=== PATIENT | female | born 1950 | race Caucasian/White ===

== ENCOUNTER 2025-04-12 10:52 | Emergency (ER) | payer MEDICARE ==
[2025-04-12 11:09] VITALS: RESP 18; TEMP 97.2
[2025-04-12 11:32] VITALS: PULSE 83; O2SAT 96
--- NOTE | 2025-04-12 12:06 | ERPHSYRPT ---
- History of Present Illness Time Seen by Provider: 04/12/25 12:02 Source: patient Exam Limitations: no limitations Patient Subjective Stated Complaint: PT HERE BECAUSE SHE FEELS LIKE SHE CAN NOT MOVE TOES TO RIGHT FOOT WELL. AND HAS NUMBNESS TO RIGHT FOOT, SHE DENIES ANY INJURY Triage Nursing Assessment: PT ARRIVED PER EMS, ALERT BUT FORGETFUL. RESP EASY, SKIN W/D/P, ABLE TO MOVES RIGHT LEG AND HOLD OFF OF BED, ABLE TO WGGILE TOES, STRONG PEDAL PULSE, NO EDEMA NOTED Physician History: Patient is a 74-year-old female presents to our ED via EMS for evaluation of numbness to her right leg and inability to dorsiflex her right foot and toes. Symptoms were observed this morning after placing a right knee brace on which she uses for stability of her right knee. No trauma no fever. Patient describes a numbness sensation along the lateral leg into the dorsum of the foot. The involved extremities neurovascular intact distally compartments are soft cap refill less than 2 seconds. Portions of this note were created with voice recognition technology. There may be grammatical, spelling, punctuation or sound alike errors Timing/Duration: today Severity: moderate Modifying Factors: Improves With: nothing Associated Symptoms: denies symptoms Allergies/Adverse Reactions: No Known Drug Allergies Allergy (Verified 04/12/25 10:56) Hx Tetanus, Diphtheria Vaccination/Date Given: Yes Hx Influenza Vaccination/Date Given: Yes Hx Pneumococcal Vaccination/Date Given: Yes Immunizations Up to Date: Yes Travel Risk - International Travel Have you traveled outside of the country in past 3 weeks: No - Emerging Infectious Disease Are you exhibiting symptoms associated with any current EIDs: No - Review of Systems Constitutional: No Symptoms, No Fever, No Chills Eyes: No Symptoms Ears, Nose, & Throat: No Symptoms Respiratory: No Symptoms, No Cough, No Dyspnea Cardiac: No Symptoms, No Chest Pain, No Edema, No Syncope Abdominal/Gastrointestinal: No Symptoms, No Abdominal Pain, No Nausea, No Vomiting, No Diarrhea Genitourinary Symptoms: No Symptoms, No Dysuria Musculoskeletal: No Symptoms, No Back Pain, No Neck Pain Skin: No Symptoms, No Rash Neurological: No Symptoms, No Dizziness, No Focal Weakness, No Sensory Changes Psychological: No Symptoms Endocrine: No Symptoms Hematologic/Lymphatic: No Symptoms Immunological/Allergic: No Symptoms All Other Systems: Reviewed and Negative - Past Medical History Pertinent Past Medical History: Yes Neurological History: No Pertinent History ENT History: Cataracts Cardiac History: Hypertension Respiratory History: No Pertinent History, COPD Endocrine Medical History: Diabetes Type II Musculoskeletal History: Arthritis GI Medical History: GERD History: No Pertinent History Psycho-Social History: Depression, Anxiety Female Reproductive Disorders: No Pertinent History Other Medical History: DIABETES,ANIXETY,DEPRESSION,ACID REFLUX - Past Surgical History Past Surgical History: Yes Neuro Surgical History: No Pertinent History Cardiac: No Pertinent History Respiratory: No Pertinent History Gastrointestinal: No Pertinent History Genitourinary: No Pertinent History Musculoskeletal: Joint Replacement Female Surgical History: Section Other Surgical History: rt knee replacement - Social History Smoking Status: Former smoker Exposure to second hand smoke: Yes Drug Use: none - Social Determinants of Health Will the patient participate in the screening: Yes Do you worry about a steady place to live?: No Do you have any problems with any of the following?: No known problems In the past 12 months,have you had to go without utilities?: No Transportation Issues: Yes Has anyone in your support network made you feel unsafe?: No Have you or anyone in your house had to go w/o enough food: No - Nursing Vital Signs Nursing Vital Signs: Initial Vital Signs O2 Sat by Pulse Oximetry 97 04/12/25 10:57 Pain Scale Pain Intensity 0 - Physical Exam General Appearance: no apparent distress, alert Eye Exam: PERRL/EOMI, eyes nml inspection Ears, Nose, Throat Exam: normal ENT inspection, moist mucous membranes Neck Exam: normal inspection, full range of motion Respiratory Exam: normal breath sounds, lungs clear, No respiratory distress Cardiovascular Exam: regular rate/rhythm, normal heart sounds, normal peripheral pulses Gastrointestinal/Abdomen Exam: soft, normal bowel sounds, No tenderness, No mass Back Exam: normal inspection, normal range of motion, No CVA tenderness, No vertebral tenderness Extremity Exam: normal inspection, pelvis stable, tenderness (Patient has a knee brace with side stabilizers. The lateral stabilizer distal tip is compressing the right common peroneal nerve at the fibular head. Overlying soft tissue intact. No signs of trauma.), other (Patient unable to dorsiflex and citlali her right foot. Unable to dorsiflex toes of right foot. Diminished sensation at the lateral aspect of the leg including the webspace between the 1st and 2nd digit. Normal sensation along the posterior calf) Neurologic Exam: alert, oriented x 3, cooperative, normal mood/affect, sensation nml, No motor deficits Skin Exam: normal color, warm, dry, No rash Lymphatic Exam: No adenopathy SpO2 Interpretation: normal SpO2: 96 O2 Delivery: Room Air - Course Nursing assessment & vital signs reviewed: Yes - Radiology Exams Knee X-ray Interpretation: Teleradiologist Report (No acute findings on knee x-ray) Ordered Tests: Active Orders 24 hr Category Date Time Status AMA [Release AMA] OM.NOW Care 04/12/25 13:18 Active ACO SDOH Referral ONCE Cons 04/12/25 11:01 Active KNEE (1 OR 2 VIEW) Stat Exams 04/12/25 12:28 Completed - Progress Progress: improved Progress Note: I discussed the case with Dr. Love of orthopedic surgery. I advised that we remove the brace and that normal function had not resumed after half hour of observation. He advised that it may take several days for the palsy to resolve. He advised leaving the brace off completely. We will apply an AFO for the foot drop and have patient follow-up in the orthopedic clinic. Patient has normal sensation at the posterior calf. This is innervated by the saphenous and sural nerve. The innervation at this location is normal. Patient has normal sensation as compared to the contralateral leg. However there is diminished sensation along the common peroneal nerve sensory distribution which indicates a peripheral nerve involvement and not a central neurologic problem. 77-year-old female presents to our ED for evaluation of a foot drop. Patient has a history of a right total knee. Patient wears a knee brace with metal laterally placed knee stabilizers. The distal stabilizer on the lateral side is pressing on the common peroneal nerve. We removed the brace. We observed patient for approximately half hour. She did not fully recover although she did say the tingling that she was experiencing resolved. We ordered a right lower extremity hinged brace to replace the brace that she was wearing. We did this to prevent compression to the common peroneal nerve in the future. Additionally patient will require an AFO which we will apply. I spoke to Dr. Love of orthopedic surgery at 12:23 PM. He will follow-up with her on an outpatient basis. Patient will be referred to see orthopedic surgery tomorrow morning. Portions of this note were created with voice recognition technology. There may be grammatical, spelling, punctuation or sound alike errors X-ray negative for fracture or dislocation. Patient received a right knee hinged brace. However patient also needs a right lower extremity AFO for foot drop for safety and to minimize risk of injury to the involved ankle foot. We made a request for the AFO. However the AFO has not mated to our department. Patient states her son is in the parking lot waiting. Patient states she will wait no longer wants to leave. Patient will leave AGAINST MEDICAL ADVICE. Patient advised of the risks of leaving AGAINST MEDICAL ADVICE. Patient also advised of the benefits of the AFO. In spite of these risks patient request to leave. Patient given a referral to the orthopedic clinic for follow-up. Patient voiced no other complaints or concerns. Patient is of sound mind. Patient is appropriate to make informed and independent medical decisions. Patient understands that leaving AGAINST MEDICAL ADVICE can result in delayed diagnosis, increased risk of morbidity, mortality, short and long-term disability including . In spite of these risks, patient has decided to leave AGAINST MEDICAL ADVICE. Patient understands that she may return to our ED at any point if she reconsiders. Patient agrees to follow-up with her primary care doctor within 48 hours for reevaluation. Patient voices no other complaints or concerns at this time. We will release patient AGAINST MEDICAL ADVICE per their request. Portions of this note were created with voice recognition technology. There may be grammatical, spelling, punctuation or sound alike errors Complexity of problem addressed is moderate acute complicated. No critical care time. Complexity of data reviewed and analyzed is moderate. Test ordered test reviewed results analyzed and correlated clinically with history and physical exam. Risk of complication and or risk of morbidity/mortality of patient management is moderate. Vital stable. Time spent to discharge patient is approximately 15 minutes. No social determinants of health present to impede follow-up. 04/12/25 12:23 Counseled pt/family regarding: diagnosis, need for follow-up, rad results - Departure Departure Disposition: Home Clinical Impression: Common peroneal nerve palsy Condition: Stable Critical Care Time: No Referrals: TARAS LORA [Primary Care Provider, UNKNOWN] - Follow up/PCP as directed Additional Instructions: Discharge/Care Plan DK POWERS was seen on 04/12/25 in the Emergency Room. The patient was counseled regarding Diagnosis,Lab results, Imaging studies, need for follow up and when to return to the Emergency Room. Prescriptions given: Discharge Note I have spoken with the patient and/or caregivers. I have explained the patient's condition, diagnosis and treatment plan based on the information available to me at this time. I have answered the patient's and/or caregiver's questions and addressed any concerns. The patient and/or caregivers have as good understanding of the patient's diagnosis, condition and treatment plan as can be expected at this point. The vital signs have been stable. The patient's condition is stable and appropriate for discharge from the emergency department. The patient will pursue further outpatient evaluation with the primary care physician or other designated or consulting physician as outlined in the discharge instructions. The patient and/or caregivers are agreeable to this plan of care and follow-up instructions have been explained in detail. The patient and/or caregivers have received these instruction. The patient/and or caregivers are aware that any significant change in condition or worsening of symptoms should prompt an immediate return to this or the closest emergency department or call 911. Outpatient Orders: Ortho Referral Time Frame: 1 Day, Facility: [facility]. [facility]osp, Location: [facility]
--- NOTE | 2025-04-12 13:03 | XRAY ---
Indication: Instability. Comparison: None AP/lateral right knee demonstrates osteopenia, intact total knee arthroplasty, and moderate scattered vascular calcifications. No other bony, articular, or soft tissue abnormalities.
[2025-04-12 13:23] VITALS: BP 141/77
== END 2025-04-12 13:25 | disposition left against medical advice (07) ==
LOC: ED 10:52
DX: G57.31 Lesion of lateral popliteal nerve, right lower limb (principal); R20.2 Paresthesia of skin; Z59.82 Transportation insecurity
CPT/HCPCS: 73560; 99283